=== PATIENT | female | born 1975 | race Caucasian/White ===

== ENCOUNTER 2016-06-22 10:05 | Inpatient (IN) ==
[2016-06-22] MEDS ORDERED: ASPIRIN PO STA (10:20)
[2016-06-22 10:32] LABS: MANUAL DIFF NEEDED? NO
[2016-06-22 10:34] LABS: BASO% 0.2 % (0.0-0.8); EOS# 0.35 X1000 (0.0-0.7); EOS% 3.3 % (0.0-10.0); HEMATOCRIT 43.3 % (37.0-47.0); HEMOGLOBIN 14.8 g/dL (12.0-16.0); IMM GRAN# 0.02 X1000 (0.0-0.04); IMM GRAN% 0.2 % (0.0-0.5); LYMPH# 3.35 X1000 (1.2-3.4); LYMPH% 31.2 % (20.5-51.1); MCH 28.9 PG (27-31); MCHC 34.2 g/dL (33-37); MCV 84.6 FL (81-99); MONO# 0.65 X1000 (0.11-0.59); MPV 9.7 FL (7.4-10.4); NEUT% 59.1 % (42.2-75.2); PLT 347 X1000 (130-400); RBC 5.12 XMIL (4.2-5.4)
--- NOTE | 2016-06-22 10:42 | PROVIDER DOCUMENTATION ---
HPI-Chest Pain - General Chief Complaint: Chest Pain Stated Complaint: CHEST PAIN Time Seen by Provider: 06/22/16 10:30 Source: patient Allergies/Adverse Reactions: Patient Allergies Allergy/AdvReac Type Severity Reaction Status Date / Time acetaminophen [From Lortab] Allergy Intermediate RASH Verified 01/28/16 10:19 hydrocodone bitartrate * Allergy Intermediate RASH Verified 01/28/16 10:19 [From Lortab] pain medication dont know Allergy Mild SHORTNESS Uncoded 01/28/16 10:19 what it w OF BREATH Home Medications: Omeprazole [Prilosec] 20 mg PO BID 12/17/14 Pregabalin [Lyrica] 75 mg PO DAILY 12/17/14 Metformin [Glucophage] 500 mg PO DAILY 09/25/15 - History of Present Illness-CP Nature of Presenting Problem: Pt is 41 y/o F presents to the ED with chest pain. Pt states the chest pain started at 0200 this morning and woke her from her sleep. Pt states one prior episode 3 months ago. Pt denies F. Pt denies N/V/D. Pt denies smoking. Location: reports: substernal Chest Pain Radiation: reports: arms (L) Quality of Pain: reports: pressure Severity in ED: moderate Onset/Duration: this morning (0200) Timing: still present, constant, getting worse Context/Activities at Onset: reports: light activity Modifying Factors: improves with: nothing Associated Symptoms: reports: headache, nausea, shortness of breath. denies: abdominal pain, back pain, dizziness, fever/chills, vomiting Nitro Today/Relief: no nitro taken today Aspirin Treatment Today: no aspirin today Similar Symptoms Previously?: Yes (chest pain 3 months ago ) Recently Seen Here or By Another Healthcare Provider: No Review of Systems - Adult - REVIEW OF SYSTEMS - ADULT Constitutional: denies: chills, fever Eyes: denies: blurred vision, double vision Ears, Nose, Mouth & Throat: denies: ear pain, nose pain, throat pain Cardiovascular: reports: chest pain. denies: heart murmur, irregular heart rate Respiratory: reports: cough. denies: shortness of breath, wheezing Gastrointestinal: reports: nausea. denies: abdominal pain, diarrhea, vomiting Genitourinary: denies: dysuria, hematuria Musculoskeletal: denies: bone pain, joint pain, neck pain Integumentary: denies: hives, itching Neurological: reports: headache/migraines (VILLARREAL). denies: dizziness/vertigo Psychiatric: reports: no symptoms reported Endocrine: reports: no symptoms reported Hematologic/Lymphatic: reports: no symptoms reported Allergic/Immunologic: reports: no symptoms reported All Other Systems: Reviewed and Negative Past History - Adult - PAST MEDICAL HISTORY-ADULT Review of Records: reports: Nursing Assessment Review, Medications Reviewed, Social history reviewed & non-contributory. Major Childhood Illnesses: reports: denies history Cardiovascular: reports: denies history Respiratory: reports: denies history Gastrointestinal: reports: GERD Obstetrical/Gynecological: reports: denies history Genitourinary: reports: denies history Musculoskeletal: reports: fibromyalgia Neurological: reports: denies history Endocrine/Immune: reports: Diabetes Other Conditions: reports: other (fibromyalgia ) - PRIOR SURGERIES/PROCEDURES Surgical/Procedure History: reports: appendectomy, cholecystectomy, BTL - IMMUNIZATION STATUS Childhood Immunizations: See Nurse Assessment Flu Vaccine: See Nurse Assessment - FAMILY HISTORY Family History: reviewed, not pertinent - SOCIAL HISTORY Smoking: denies Substance Use: denies Living Situation: family Physical Exam-General - PHYSICAL EXAM-ADULT Initial Vital Signs Reviewed: Yes - CONSTITUTIONAL General Appearance: appears well, alert, mild distress - EYES Eyes: PERRL/EOMI, pink conjunctivae - HEAD, EARS, NOSE, MOUTH & THROAT HENMT: normocephalic/atraumatic, moist mucous membranes, normal ENT inspection - NECK Neck: non-tender, full range of motion, supple, normal inspection - RESPIRATORY Respiratory: chest non-tender, lungs clear, normal breath sounds - CARDIOVASCULAR Cardiovascular: normal peripheral pulses, regular rate, rhythm, no edema - CHEST (BREASTS) Chest/Breast: tenderness - GASTROINTESTINAL (ABDOMEN) Abdominal Exam: normal bowel sounds, non tender, soft - LYMPHATIC Lymphatic: no adenopathy - MUSCULOSKELETAL Back Exam: normal inspection, no CVA tenderness, no vertebral tenderness Extremity: normal range of motion, non-tender, normal gait - SKIN Integumentary: normal color, normal turgor, warm/dry - NEUROLOGIC 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, grossly normal, no motor/sensory deficits - PSYCHIATRIC Psych/Mental Status: normal mood/affect, normal thought content, normal thought process, oriented x 3 Progress - PLAN OF CARE/RESULTS Progress/Plan/Lab Results: Laboratory Tests 06/22/16 10:27 WBC 10.75 RBC 5.12 Hgb 14.8 Hct 43.3 MCV 84.6 MCH 28.9 MCHC 34.2 RDW Std Deviation 13.0 Plt Count 347 MPV 9.7 Immature Gran % (Auto) 0.2 Neut % (Auto) 59.1 Lymph % (Auto) 31.2 Converse % (Auto) 6.0 Eos % (Auto) 3.3 Baso % (Auto) 0.2 Immature Gran # (Auto) 0.02 Neut # (Auto) 6.36 Lymph # (Auto) 3.35 Converse # (Auto) 0.65 H Eos # (Auto) 0.35 Baso # (Auto) 0.02 Orders Category Date Time Status Cardiac Monitoring DIRECTED Care 06/22/16 10:20 Active Oxygen Therapy- ED Nursing DIRECTED Care 06/22/16 10:20 Active Saline Loc NOW Care 06/22/16 10:20 Active CHEST-PORTABLE [RAD] Stat Exams 06/22/16 10:21 Ordered CBC WITH ELECTRONIC DIFF [HEME] Stat Lab 06/22/16 10:27 Completed CK PROFILE [SP CHEM] Stat Lab 06/22/16 10:27 Received COMPREHENSIVE METABOLIC PANEL [CHEM] Stat Lab 06/22/16 10:[address]ceived D-D[address]ER [address] [COAG] Stat Lab 06/22/16 10:27 Received MAGNESIUM [CHEM] Stat Lab 06/22/16 10:27 Received PRO B-NATRIURETIC PEPTIDE Stat Lab 06/22/16 10:27 Received [address]IME WITH INR PL [COAG] Stat Lab 06/22/16 10:[address] [COAG] Stat Lab 06/22/16 10:27 Received TROPONIN T Stat Lab 06/22/16 10:27 Received Aspirin Med 06/22/16 10:20 Discontinued 325 mg PO STAT STA EKG [EKG] Stat Ther 06/22/16 10:20 Ordered Vital Signs - 24 hr 06/22/16 10:22 Pulse Rate 93 H Respiratory 20 Rate Blood Pressure 123/82 O2 Sat by Pulse 96 Oximetry Laboratory Tests 06/22/16 06/22/16 06/22/16 10:27 10:27 10:27 WBC RBC Hgb Hct MCV MCH MCHC RDW Std Deviation Plt Count MPV Immature Gran % (Auto) Neut % (Auto) Lymph % (Auto) [place]verse % (Auto) Eos % (Auto) Baso % (Auto) Immature Gran # (Auto) Neut # (Auto) Lymph # (Auto) [place] # (Auto) Eos # (Auto) Baso # (Auto) PT INR APTT (Factor Assay) D-Dimer Sodium 137 Potassium 3.4 L Chloride 102 Carbon Dioxide 25 Anion Gap 10 BUN 12 Creatinine 0.5 Estimated GFR/1.73 m2 > 60 BUN/Creatinine Ratio 24 Glucose 131 H Calculated Osmolality 275 Calcium 9.5 Magnesium 2.0 Total Bilirubin 0.70 AST 31 H ALT 49 H Alkaline Phosphatase 108 H Creatine Kinase 54 Troponin T < 0.010 Elq-Y-Xpbukpfjsoh Pept 23 Total Protein 8.1 Albumin 4.4 Globulin 4.0 Albumin/Globulin Ratio 1.0 Group A Strep Rapid 06/22/16 06/22/16 06/22/16 10:27 10:27 11:51 WBC 10.75 RBC 5.12 Hgb 14.8 Hct 43.3 MCV 84.6 MCH 28.9 MCHC 34.2 RDW Std Deviation 13.0 Plt Count 347 MPV 9.7 Immature Gran % (Auto) 0.2 Neut % (Auto) 59.1 Lymph % (Auto) 31.2 Converse % (Auto) 6.0 Eos % (Auto) 3.3 Baso % (Auto) 0.2 Immature Gran # (Auto) 0.02 Neut # (Auto) 6.36 Lymph # (Auto) 3.35 Converse # (Auto) 0.65 H Eos # (Auto) 0.35 Baso # (Auto) 0.02 PT 13.3 INR 0.98 APTT (Factor Assay) 32.6 D-Dimer 1.06 H Sodium Potassium Chloride Carbon Dioxide Anion Gap BUN Creatinine Estimated GFR/1.73 m2 BUN/Creatinine Ratio Glucose Calculated Osmolality Calcium Magnesium Total Bilirubin AST ALT Alkaline Phosphatase Creatine Kinase Troponin T Ohg-U-Yixlglqoxmm Pept Total Protein Albumin Globulin Albumin/Globulin Ratio Group A Strep Rapid NEGATIVE Laboratory Tests 06/22/16 06/22/16 06/22/16 10:27 10:27 10:27 WBC RBC Hgb Hct MCV MCH MCHC RDW Std Deviation Plt Count MPV Immature Gran % (Auto) Neut % (Auto) Lymph % (Auto) [place]verse % (Auto) Eos % (Auto) Baso % (Auto) Immature Gran # (Auto) Neut # (Auto) Lymph # (Auto) [place] # (Auto) Eos # (Auto) Baso # (Auto) PT INR APTT (Factor Assay) D-Dimer Sodium 137 Potassium 3.4 L Chloride 102 Carbon Dioxide 25 Anion Gap 10 BUN 12 Creatinine 0.5 Estimated GFR/1.73 m2 > 60 BUN/Creatinine Ratio 24 Glucose 131 H Calculated Osmolality 275 Calcium 9.5 Magnesium 2.0 Total Bilirubin 0.70 AST 31 H ALT 49 H Alkaline Phosphatase 108 H Creatine Kinase 54 Troponin T < 0.010 Gbx-F-Vnvzjqtlwmd Pept 23 Total Protein 8.1 Albumin 4.4 Globulin 4.0 Albumin/Globulin Ratio 1.0 Influenza A (Rapid) Influenza B (Rapid) Group A Strep Rapid 06/22/16 06/22/16 06/22/16 10:27 10:27 11:51 WBC 10.75 RBC 5.12 Hgb 14.8 Hct 43.3 MCV 84.6 MCH 28.9 MCHC 34.2 RDW Std Deviation 13.0 Plt Count 347 MPV 9.7 Immature Gran % (Auto) 0.2 Neut % (Auto) 59.1 Lymph % (Auto) 31.2 [place]verse % (Auto) 6.0 Eos % (Auto) 3.3 Baso % (Auto) 0.2 Immature Gran # (Auto) 0.02 Neut # (Auto) 6.36 Lymph # (Auto) 3.35 Converse # (Auto) 0.65 H Eos # (Auto) 0.35 Baso # (Auto) 0.02 PT 13.3 INR 0.98 APTT (Factor Assay) 32.6 D-Dimer 1.06 H Sodium Potassium Chloride Carbon Dioxide Anion Gap BUN Creatinine Estimated GFR/1.73 m2 BUN/Creatinine Ratio Glucose Calculated Osmolality Calcium Magnesium Total Bilirubin AST ALT Alkaline Phosphatase Creatine Kinase Troponin T Bpw-G-Ibjvnqfxeuv Pept Total Protein Albumin Globulin Albumin/Globulin Ratio Influenza A (Rapid) NEGATIVE Influenza B (Rapid) NEGATIVE Group A Strep Rapid 06/22/16 11:51 WBC RBC Hgb Hct MCV MCH MCHC RDW Std Deviation Plt Count MPV Immature Gran % (Auto) Neut % (Auto) Lymph % (Auto) [place] % (Auto) Eos % (Auto) Baso % (Auto) Immature Gran # (Auto) Neut # (Auto) Lymph # (Auto) [place] # (Auto) Eos # (Auto) Baso # (Auto) PT INR APTT (Factor Assay) D-Dimer Sodium Potassium Chloride Carbon Dioxide Anion Gap BUN Creatinine Estimated GFR/1.73 m2 BUN/Creatinine Ratio Glucose Calculated Osmolality Calcium Magnesium Total Bilirubin AST ALT Alkaline Phosphatase Creatine Kinase Troponin T Cfn-X-Mjyeyokavlp Pept Total Protein Albumin Globulin Albumin/Globulin Ratio Influenza A (Rapid) Influenza B (Rapid) Group A Strep Rapid NEGATIVE - EKG 1 Time of EKG reading by physician:: 10:40 EKG Read and Signed by:: Min Navarro EKG Interpretation (*Must complete 3 of following elements*): Abnormal Rate: 90 Rhythm: normal sinus rhythm wirh sinus arrhythmia Comments: cannot rule out anterior infarct, age undetermined - XRAY 1 XRAY: Bilateral XRAY Study: Chest Impression: Normal XRAY Interpretation: nad - CONSULTS/PCP/HOSPITALIST Notification #1 *Consult/PCP/Hospitalist*: Dr. Howard Time Discussed: 12:24 (Dr. Howard stated Dr. Garcia admits his own Pt. Pt's PCP is Dr. Garcia ) Reason/Comments: Dr. Navarro consulted with Dr. Howard about admit of Pt. Consult Disposition: other #2 Consult: Dr. Garcia Time Discussed: 12:40 (Dr. Garcia accepted admit ) Reason/Comments: Dr. Navarro consulted with Dr. Garcia about admit of Pt Consult Disposition: Admit Departure - Departure Time of Disposition Order: 12:39 DIAGNOSIS: Chest pain Qualifiers: Chest pain type: unspecified Qualified Code(s): R07.9 - Chest pain, unspecified Disposition: ADMITTED INPATIENT 09 Certified Medical Emergency: Emergent Condition: Stable Additional Instructions: ED Follow Up Instructions: You have been treated by a care provider in the Emergency Department. These instructions are being provided to you so you can have an understanding of how to care for yourself upon discharge. Upon discharge from the Emergency Department, you are responsible for making arrangements for follow-up care by a physician of your choice. Take all prescribed medications as directed. Return to the Emergency Department immediately for any new or worsening symptoms. You may call the Physician Referral phone number at [phone] to obtain a list of Physicians who are taking new patients. Referrals: Carlos Garcia MD [Primary Care Provider] - Attestation - Scribe Verification/Attestation Scribe:: Coral Navas Acting as Scribe for:: iMn Navarro Scribe documention review:: This chart was documented by a scribe and accurately reflects the service the provider performed and the decisions made by the provider.
[2016-06-22 10:54] LABS: INR 0.98 (0.86-1.15); PROTIME 13.3 Seconds (12.1-15.5)
[2016-06-22 10:55] LABS: PTT PL 32.6 Seconds (22.6-43.9)
--- NOTE | 2016-06-22 10:56 | EKG Report ---
Test Performed on : 06/22/2016 10:40:51 AM Test Reason : CP Blood Pressure : / mmHG Vent. Rate : 090 BPM Atrial Rate : 090 BPM P-R Int : 128 ms QRS Dur : 088 ms QT Int : 350 ms P-R-T Axes : 039 012 051 degrees QTc Int : 428 ms Normal sinus rhythm. with sinus arrhythmia. Cannot rule out Anterior infarct (cited on or before 28-JAN-2016) Abnormal ECG When compared with ECG of 28-JAN-2016 07:41, Vent. rate has increased BY 33 BPM Borderline criteria for Inferior infarct are no longer present T wave inversion no longer evident in Inferior leads Unconfirmed Result
[2016-06-22 10:58] LABS: AGAP 10; ALBUMIN 4.4 g/dL (3.5-5.0); ALKALINE PHOSPHATASE 108 U/L (32-104); BUN 12 mg/dL (8-22); CALCIUM 9.5 mg/dL (8.8-10.2); CHLORIDE 102 mmol/L (98-107); CK PROFILE 54 U/L (24-173); COSMO 275; GOT 31 U/L (10-30); GPT 49 U/L (10-36); POTASSIUM 3.4 mmol/L (3.5-5.1); SODIUM 137 mmol/L (136-145); TCO2 25 mmol/L (25-35); TOTAL PROTEIN 8.1 g/dL (6.3-8.3)
--- NOTE | 2016-06-22 11:16 | Diag Imaging Result Document ---
PROCEDURE NAME: CHEST-PORTABLE - 06/22/2016 AP PORTABLE CHEST AT 1023 HOURS: FINDINGS: There is no evidence of acute cardiac or pulmonary disease. The inspiration is slightly less optimal than on 01/28/2016. IMPRESSION: No acute disease.
[2016-06-22] MEDS ORDERED: ZOFRAN IV PRN (17:55)
[2016-06-22] MEDS: TYLENOL PO PRN (19:20)
[2016-06-22] MEDS ORDERED: MOTRIN PO ONE (23:47)
[2016-06-23] MEDS ORDERED: MOTRIN PO PRN (00:50)
[2016-06-23 06:39] LABS: HEMATOCRIT 39.9 % (37.0-47.0); HEMOGLOBIN 13.4 g/dL (12.0-16.0); MCH 28.8 PG (27-31); MCHC 33.6 g/dL (33-37); MCV 85.8 FL (81-99); MPV 9.8 FL (7.4-10.4); RBC 4.65 XMIL (4.2-5.4)
[2016-06-23] MEDS ORDERED: PRILOSEC PO SCH (07:00)
[2016-06-23 07:35] LABS: AGAP 9; ALBUMIN 3.7 g/dL (3.5-5.0); ALKALINE PHOSPHATASE 81 U/L (32-104); BUN 16 mg/dL (8-22); CALCIUM 8.7 mg/dL (8.8-10.2); CHLORIDE 107 mmol/L (98-107); COSMO 279; GOT 25 U/L (10-30); GPT 42 U/L (10-36); POTASSIUM 3.5 mmol/L (3.5-5.1); SODIUM 138 mmol/L (136-145); TCO2 23 mmol/L (25-35); TOTAL PROTEIN 6.7 g/dL (6.3-8.3)
[2016-06-23 08:06] VITALS: BP 113/72
[2016-06-23] MEDS: TYLENOL PO PRN (08:26)
--- NOTE | 2016-06-23 12:02 | DISCHARGE SUMMARY ---
ADMISSION DATE: 06/22/2016 DISCHARGE DATE: 06/23/2016 SUBJECTIVE: The patient notes that she is still having chest wall pressure. DISCHARGE DIAGNOSES: 1. Chest pain. Noncardiac in nature, appears more chest wall pain. 2. Headache. 3. Bilateral ear pain. 4. Diabetes. 5. Reflux. CONSULTATIONS: None. PROCEDURES: None. BRIEF HOSPITAL COURSE: Patient is a 41-year-old female, who was admitted as on the [facility], treated in usual fashion. She was admitted for chest pain, which appears to be more non cardiac in nature. Appears to be more GI related. She is having chest pain left-sided, no radiation to her left jaw. She is having bilateral ear pain, bilateral headaches and nausea. This certainly would more than likely be reflux symptoms. DISPOSITION: The patient will be discharged home. Her enzymes have been negative. She will continue her home medications, although we will stop her Glucophage for now. We will increase Prilosec to 40 mg once a day. She will follow up in the office within the week to schedule outpatient stress test.
== END 2016-06-23 11:15 | disposition home or self-care (01) | DRG 313 ==
LOC: P.ED 10:05 → P.MEDSURG 13:52
PROVIDERS: ADMIT Family Medicine; ATTEND Family Medicine
DX: R07.89 Other chest pain (principal); E11.9 Type 2 diabetes mellitus without complications; K21.9 Gastro-esophageal reflux disease without esophagitis; M79.7 Fibromyalgia; Z79.899 Other long term (current) drug therapy; Z79.84 Long term (current) use of oral hypoglycemic drugs
CPT/HCPCS: 36415; 71010; 80053; 82550; 82948; 83735; 83880; 84484; 85025; 85027; 85379; 85610; 85730; 87081; 87430; 87804; 93005; 99285